=== PATIENT | male | born 1955 | race Caucasian/White ===

== ENCOUNTER 2018-12-13 09:30 | Day surgery (SDC) | payer OTHER ==
[~2018-12-13] VITALS: Ht 177.8 cm; Wt 72.1 kg
[~2018-12-13 09:30] MED LIST: ASPI81TA85 PO; B COTAB3 PO; METO25TA4 PO; PARO30TA PO; THIA100TA PO
[2018-12-13] MEDS ORDERED: PROPOFOL 200 MG/20 ML VIAL As Ordered ONE ×2 (11:16→11:34)
--- NOTE | 2018-12-13 11:37 | ROOR ---
Patient Name: Luis Sanches Procedure Date: 12/13/2018 11:17 AM Date of : 1955 Age: 63 Room: [facility] Gender: Male Note Status: Finalized Procedure: Total Colonoscopy to Cecum + Cold Snare Polypectomy Indications: Screening for colorectal malignant neoplasm Providers: Jean Malik MD Referring MD: Amor Arce Md Requesting Provider: Medicines: Monitored Anesthesia Care Complications: No immediate complications. Procedure: Pre-Anesthesia Assessment: - The heart rate, respiratory rate, oxygen saturations, blood pressure, adequacy of pulmonary ventilation, and response to care were monitored throughout the procedure. The Colonoscope was introduced through the anus and advanced to the cecum, identified by appendiceal orifice and ileocecal valve. The colonoscopy was performed without difficulty. The patient tolerated the procedure well. The quality of the bowel preparation was excellent. Findings: The perianal and digital rectal examinations were normal. Non-bleeding internal hemorrhoids were found during retroflexion. The hemorrhoids were small and Grade I (internal hemorrhoids that do not prolapse). Multiple small and large-mouthed diverticula were found in the recto-sigmoid colon, sigmoid colon and descending colon. A small polyp was found in the transverse colon. The polyp was sessile. The polyp was removed with a cold snare. Resection and retrieval were complete. The exam was otherwise without abnormality on direct and retroflexion views. Impression: - Non-bleeding internal hemorrhoids. - Diverticulosis in the recto-sigmoid colon, in the sigmoid colon and in the descending colon. - One small polyp in the transverse colon, removed with a cold snare. Resected and retrieved. - The examination was otherwise normal on direct and retroflexion views. - The exam was otherwise normal to the cecum. Recommendation: - Patient has a contact number available for emergencies. The signs and symptoms of potential delayed complications were discussed with the patient. Return to normal activities tomorrow. Written discharge instructions were provided to the patient. - High fiber diet. - Discharge patient to home. - Continue present medications. - Await pathology results. - Telephone GI clinic for pathology results in 1 week. - Return to referring physician. - The findings and recommendations were discussed with the patient's family. Jean Malik MD Jean Malik MD 12/13/2018 11:37:10 AM Electronically signed by Jean Malik MD Number of Addenda: 0 Note Initiated On: 12/13/2018 11:17 AM Estimated Blood Loss: Estimated blood loss: none.
[2018-12-13 12:10] VITALS: BP 160/96
== END 2018-12-13 12:20 | disposition home or self-care (01) ==
LOC: M OPP 09:30
PROVIDERS: ATTEND Internal Medicine Gastroenterology
DX: Z12.11 Encounter for screening for malignant neoplasm of colon (principal); K64.0 First degree hemorrhoids; D12.3 Benign neoplasm of transverse colon; K57.30 Diverticulosis of large intestine without perforation or abscess without bleeding; E83.119 Hemochromatosis, unspecified; I10 Essential (primary) hypertension; G35 Multiple sclerosis; Z79.82 Long term (current) use of aspirin; Z79.899 Other long term (current) drug therapy

== ENCOUNTER → 2020-05-17 | Outpatient (CLI) | payer OTHER ==
[~2020-05-17] MED LIST changes: -ASPI81TA85 PO; +ASPI81TA86 PO; -PARO30TA PO; +PARO30TA65 PO
--- NOTE | 2020-05-17 09:15 | REP ---
INDICATION: CIRRHOSIS, ASCITES COMPARISON: None TECHNIQUE: Real time B-mode day scale ultrasound examination using curved array transducer. FINDINGS: Liver demonstrates coarsened echotexture consistent with cirrhosis. No obvious focal hepatic lesion identified. Very small amount of perihepatic ascites noted. Spleen is normal in appearance and measures 9.5 x 9.8 x 4.4 cm (splenic index: 410). Few scattered splenic calcifications consistent with prior granulomatous disease. Pancreas is incompletely evaluated but visualized portions appear normal. Gallbladder is normal and without gallstones, wall thickening, or pericholecystic fluid. No biliary ductal dilatation is appreciated and the common bile duct measures 5.5 mm diameter. The bilateral kidneys are normal in reniform shape without hydronephrosis or obvious abnormality. Right kidney measures 9.7 x 4.5 x 4.5 cm. Left kidney measures 10.2 x 5.0 x 4.4 cm. Aorta is incompletely evaluated but visualized portions appear relatively normal and measure 1.4 cm maximal diameter. IMPRESSION: 1. Findings consistent with cirrhosis. No focal hepatic lesion identified. <Electronically signed by Benson Barbour > 05/17/20 [id number]
== END ==
LOC: M RAD 08:16
PROVIDERS: ATTEND Physician Assistant
DX: K74.60 Unspecified cirrhosis of liver (principal)

== ENCOUNTER → 2020-11-12 | Outpatient (CLI) | payer OTHER ==
[~2020-11-12] MED LIST changes: +GASTROGRAFIN SOLUTION 30ML (Q9963) As Ordered ONE; +ISOVUE-370 76% 100ML VIAL As Ordered ONE
--- NOTE | 2020-11-12 17:25 | REP ---
INDICATION: ALCOHOLIC CIRRHOSIS W/ ASCITES. COMPARISON: None. TECHNIQUE: Bolus of 100 mL Isovue 370 scanning to the abdomen with arterial, venous and delayed phases and with precontrast abdominal images also performed. Coronal and sagittal reconstructions provided. Oral Gastrografin mixture per our CT abdomen protocol given. FINDINGS: The lung bases appeared clear. Heart is not grossly enlarged. There is no pericardial thickening or effusion. No gross hiatal hernia but abundant fat at the level of the aortic hiatus and gastroesophageal junction. There is some infiltration of the periesophageal fat and irregular margins that may reflect varices or other pathology. The liver shows lobulated contour. No hepatic mass or intrahepatic biliary dilatation there is a very large left hepatic lobe present. Small of ascites adjacent to the liver. I see no splenomegaly or focal splenic lesion. Gallbladder has a few dependent stones without mass or wall thickening. There is thickening of the gastric antrum and duodenal bulb wall suggesting muscular hypertrophy or underlying mucosal disease such as gastritis/duodenitis. Lumen appears irregular. The adrenal glands grossly intact. Pancreas shows common duct mildly prominent in the cole hepatis and pancreatic head without calcification within it. Pancreatic duct is also mildly prominent without gross mass, fluid collection or peripancreatic adenopathy. The aorta has calcifications and plaque without aneurysm or dissection. No periaortic, mesenteric or other retroperitoneal pathologic sized adenopathy. Oral contrast into proximal to distal small bowel loops and right colon. No bowel wall thickening or significant mesenteric edema/fluid. The colon scattered stool and gas without colitis or diverticulitis observed. Lung window review of all CT slices shows no perforation or free air. Bone windows show a mild anterior wedging T12 and minimal at T10 and L4 superior endplates. No paraspinal hematoma is here to suggest acuity. Posterior elements show some degenerative changes lower lumbar facets. Visualized ribs were grossly unremarkable. IMPRESSION: 1. Prominent left hepatic lobe with lobulated hepatic contours, smaller right lobe, adjacent small amount of ascites all consistent with chronic liver disease. No focal liver lesion identified. No biliary dilatation. 2. No splenomegaly or focal splenic lesion. I do not see perisplenic varices but there is some fullness of the esophageal wall a distally and infiltration of adjacent fat that could be represent varices or other esophageal disease. This should be correlated clinically as esophageal malignancy is not excluded. 3. Irregular thickening of the wall of the distal antrum and duodenal bulb region the lumen is irregular. This may be mucosal disease with the affective some varices. Clinical correlation consideration for endoscopy warranted. 4. Few small layered gallstones in the dependent gallbladder with the common duct mildly prominent at the cole hepatis and pancreatic head but no stone visible within it. Pancreas shows mild prominence of the pancreatic duct without mass. 5. Diffuse atherosclerotic calcifications of the aorta and branches. Colon, small bowel loops and kidneys without acute finding. Adrenal glands symmetric with thickened limbs suggesting adrenal hyperplasia. 6. No acute bony finding. <Electronically signed by Rufino Silva > 11/12/20 [id number]
== END ==
LOC: M RAD 13:17
PROVIDERS: ATTEND Internal Medicine
DX: K70.31 Alcoholic cirrhosis of liver with ascites (principal)
CPT/HCPCS: 74170; Q9963; Q9967

== ENCOUNTER → 2021-05-14 | Outpatient (CLI) | payer OTHER ==
[~2021-05-14] MED LIST changes: -GASTROGRAFIN SOLUTION 30ML (Q9963) As Ordered ONE; -ISOVUE-370 76% 100ML VIAL As Ordered ONE
== END ==
LOC: M RAD 07:49
PROVIDERS: ATTEND Physician Assistant
DX: K70.31 Alcoholic cirrhosis of liver with ascites (principal)

== ENCOUNTER → 2021-12-27 | Outpatient (CLI) | payer OTHER | LOC: M RAD 07:48 | PROVIDERS: ATTEND Physician Assistant | DX: K70.31 Alcoholic cirrhosis of liver with ascites (principal) ==

== ENCOUNTER → 2022-07-02 | Outpatient (CLI) | payer MEDICARE, OTHER | LOC: M RAD 08:29 | PROVIDERS: ATTEND Physician Assistant | DX: K70.31 Alcoholic cirrhosis of liver with ascites (principal) ==

== ENCOUNTER → 2022-12-15 | Outpatient (CLI) | payer MEDICARE, OTHER | LOC: M RAD 08:06 | PROVIDERS: ATTEND Physician Assistant | DX: K70.31 Alcoholic cirrhosis of liver with ascites (principal) ==

== ENCOUNTER → 2023-06-05 | Outpatient (CLI) | payer MEDICARE, OTHER | LOC: M RAD 11:32 | PROVIDERS: ATTEND Podiatrist | DX: I73.9 Peripheral vascular disease, unspecified (principal) ==

== ENCOUNTER → 2023-06-22 | Outpatient (CLI) | payer MEDICARE, OTHER | LOC: M RAD 08:56 | PROVIDERS: ATTEND Physician Assistant | DX: K70.31 Alcoholic cirrhosis of liver with ascites (principal) ==

== ENCOUNTER 2023-07-21 15:13 | Observation (INO) | payer OTHER, MEDICARE ==
[~2023-07-21] VITALS: Ht 177.8 cm; Wt 69.6 kg
[2023-07-21 15:59] LABS: BASO % 0.4 % (0.0-1.0); EOS # 0.2 10^3/uL (0.0-0.5); EOS % 2.1 % (0.0-3.0); HEMATOCRIT 42.6 % (42.0-52.0); LYMPH # 1.7 10^3/uL (1.5-5.0); LYMPH % 23.7 % (24.0-44.0); MEAN CORPUSCULAR HEMOGLOBIN 33.5 pg (27.0-33.0); MEAN CORPUSCULAR HGB CONC 35.2 g/dl (32.0-36.5); MEAN CORPUSCULAR VOLUME 95.1 fl (80.0-96.0); MONO # 0.4 10^3/uL (0.0-0.8); MONO % 6.2 % (2.0-8.0); NEUTROPHILS # 4.7 10^3/uL (1.5-8.5); RED BLOOD COUNT 4.48 10^6/uL (4.30-6.10); WHITE BLOOD COUNT 7.1 10^3/uL (4.0-10.0)
[2023-07-21 16:06] LABS: ERYTHROCYTE SEDIMENTATION RATE 76 mm/hr (0-20)
[2023-07-21 16:18] LABS: PLATELET COUNT, AUTOMATED 86 10^3/uL (150-450)
[2023-07-21 16:22] LABS: BLOOD UREA NITROGEN 18 MG/DL (9-23); CARBON DIOXIDE LEVEL 25 MMOL/L (20-31); CHLORIDE LEVEL 100 MMOL/L (98-107); CREATININE FOR GFR 1.22 MG/DL (0.70-1.30); GLOMERULAR FILTRATION RATE > 60.0 (>49); GLUCOSE, FASTING 110 MG/DL (74-106); POTASSIUM SERUM 4.6 MMOL/L (3.5-5.1); SODIUM LEVEL 132 MMOL/L (136-145)
[2023-07-21] MEDS: ceFAZolin SOD 2 GM in IV 1 EA IV ONE (17:51)
[2023-07-21] MEDS: KETOROLAC 30 MG/ML 1ML VIAL IV ONE (17:51)
[2023-07-21] MEDS: ACETAMINOPHEN TAB 650MG DOSE (2X325MG) PO ONE (20:11)
[2023-07-21] MEDS: NS 1,000 ML IV ONE (20:12)
[2023-07-21] MEDS ORDERED: SPIR100T3 PO (20:50)
[2023-07-21] MEDS ORDERED: OMEP40CA4 PO (20:50)
[2023-07-21] MEDS ORDERED: MAGN400T35 PO (20:50)
[2023-07-21] MEDS ORDERED: FURO40TA2 PO (20:50)
[2023-07-21] MEDS ORDERED: EZET10TA21 PO (20:50)
[2023-07-21] MEDS ORDERED: PARO40TA3 PO (20:50)
[2023-07-21] MEDS ORDERED: FOLI1TAB11 PO (20:50)
[2023-07-21] MEDS ORDERED: GABA-1171 PO ×3 (20:50→23:28)
[2023-07-21 20:53] LABS: RSV AMPLIFICATION NEGATIVE (NEGATIVE)
[2023-07-21] MEDS ORDERED: METO1TAB87 PO (23:28)
[2023-07-21] MEDS ORDERED: MAGN400T33 PO (23:28)
[2023-07-21] MEDS ORDERED: OMEP40CA5 PO (23:28)
[2023-07-21] MEDS ORDERED: PAXI40TA12 PO (23:28)
[2023-07-21] MEDS ORDERED: VITA50TA47 PO ×2 (23:28)
[2023-07-21] MEDS ORDERED: VITA100093 PO (23:29)
[2023-07-21] MEDS ORDERED: HOME MED LIST COMPLETE! XX SCH (23:30)
[2023-07-21] MEDS ORDERED: ACETAMINOPHEN TAB 650MG DOSE (2X325MG) PO PRN (23:35)
[2023-07-21] MEDS: METOPROLOL TART 12.5 MG PER 1/2 TAB PO SCH (23:35)
[2023-07-22] MEDS ORDERED: PILL CUTTER 1 EACH XX PRN (00:05)
[2023-07-22] MEDS: CLINDAMYCIN 150MG CAPSULE PO SCH (01:12)
[2023-07-22] MEDS: OMEPRAZOLE 20MG CAP PO SCH (01:12)
[2023-07-22] MEDS: THIAMINE 100 MG TAB PO SCH ×2 (01:12→09:17)
[2023-07-22] MEDS: GABAPENTIN 100 MG CAP PO SCH ×2 (01:13→09:17)
[2023-07-22] MEDS: MAGNESIUM OXIDE 400MG TAB (MAG-OX) PO SCH (01:14)
[2023-07-22 01:32] VITALS: BP 118/56; TEMP 97.6; O2SAT 97
[2023-07-22 06:00] VITALS: BP 101/52; TEMP 97.7; O2SAT 97
[2023-07-22 07:19] LABS: CALCIUM LEVEL 8.2 MG/DL (8.3-10.6); CREATININE FOR GFR 1.3 MG/DL (0.70-1.30); GLOMERULAR FILTRATION RATE 58.6 (>49); POTASSIUM SERUM 4.2 MMOL/L (3.5-5.1)
[2023-07-22] MEDS ORDERED: ISOVUE-370 76% 100ML VIAL As Ordered ONE (08:14)
[2023-07-22] MEDS: NS 1,000 ML IV SCH (09:14)
[2023-07-22] MEDS: SPIRONOLACTONE 50 MG TAB PO SCH (09:15)
[2023-07-22] MEDS: EZETIMIBE 10MG TABLET (ZETIA) PO SCH (09:15)
[2023-07-22] MEDS: PARoxetine 20MG TABLET PO SCH (09:16)
[2023-07-22] MEDS: FUROSEMIDE 40 MG TAB PO SCH (09:16)
[2023-07-22] MEDS: FOLIC ACID 1MG TAB PO SCH (09:17)
[2023-07-22] MEDS: PERCOCET 5MG/325MG TAB PO PRN (10:29)
[2023-07-22 10:49] LABS: BASO % 0.7 % (0.0-1.0); EOS # 0.2 10^3/uL (0.0-0.5); EOS % 5.6 % (0.0-3.0); HEMATOCRIT 35.6 % (42.0-52.0); HEMOGLOBIN 12.5 g/dl (13.5-17.5); LYMPH # 1.4 10^3/uL (1.5-5.0); LYMPH % 33.3 % (24.0-44.0); MEAN CORPUSCULAR HEMOGLOBIN 33.4 pg (27.0-33.0); MEAN CORPUSCULAR HGB CONC 35.1 g/dl (32.0-36.5); MEAN CORPUSCULAR VOLUME 95.2 fl (80.0-96.0); MONO # 0.3 10^3/uL (0.0-0.8); MONO % 7.1 % (2.0-8.0); NEUTROPHILS # 2.2 10^3/uL (1.5-8.5); NEUTROPHILS % 53.1 % (36.0-66.0); RED BLOOD COUNT 3.74 10^6/uL (4.30-6.10); WHITE BLOOD COUNT 4.1 10^3/uL (4.0-10.0)
[2023-07-22 10:52] LABS: PROCALCITONIN 0.1 ng/ml
[2023-07-22 10:59] LABS: PLATELET COUNT, AUTOMATED 65 10^3/uL (150-450)
[2023-07-22 14:00] VITALS: BP 108/60; TEMP 96.8; O2SAT 100
[2023-07-22] MEDS: HEPARIN SOD (PORCINE) 5000UNITS/ML 1ML VIAL/SYRINGE SQ SCH (14:59)
[2023-07-22] MEDS: CALCIUM CARBONATE 500 MG CHEW U/D PO PRN (15:27)
[2023-07-22 21:37] VITALS: BP 104/60; TEMP 97.7; O2SAT 97
[2023-07-22 21:53] VITALS: BP 104/60; TEMP 97.7; O2SAT 97
[2023-07-23 06:26] LABS: BASO % 0.5 % (0.0-1.0); EOS # 0.2 10^3/uL (0.0-0.5); EOS % 3.8 % (0.0-3.0); HEMATOCRIT 36.5 % (42.0-52.0); HEMOGLOBIN 12.5 g/dl (13.5-17.5); LYMPH # 1.7 10^3/uL (1.5-5.0); LYMPH % 25.9 % (24.0-44.0); MEAN CORPUSCULAR HEMOGLOBIN 32.6 pg (27.0-33.0); MEAN CORPUSCULAR HGB CONC 34.2 g/dl (32.0-36.5); MEAN CORPUSCULAR VOLUME 95.3 fl (80.0-96.0); MONO # 0.5 10^3/uL (0.0-0.8); MONO % 7.8 % (2.0-8.0); NEUTROPHILS # 3.9 10^3/uL (1.5-8.5); NEUTROPHILS % 61.4 % (36.0-66.0); RED BLOOD COUNT 3.83 10^6/uL (4.30-6.10); WHITE BLOOD COUNT 6.4 10^3/uL (4.0-10.0)
[2023-07-23 06:31] LABS: PLATELET COUNT, AUTOMATED 78 10^3/uL (150-450)
[2023-07-23 06:55] LABS: BLOOD UREA NITROGEN 13 MG/DL (9-23); CALCIUM LEVEL 8.5 MG/DL (8.3-10.6); CARBON DIOXIDE LEVEL 27 MMOL/L (20-31); CHLORIDE LEVEL 107 MMOL/L (98-107); CREATININE FOR GFR 1.22 MG/DL (0.70-1.30); GLOMERULAR FILTRATION RATE > 60.0 (>49); GLUCOSE, FASTING 95 MG/DL (74-106); POTASSIUM SERUM 4.8 MMOL/L (3.5-5.1); SODIUM LEVEL 138 MMOL/L (136-145)
[2023-07-23 09:00] VITALS: BP 102/58
[2023-07-23 09:02] LABS: CALCIUM LEVEL 9.1 MG/DL (8.3-10.6)
[2023-07-23 09:05] VITALS: BP 102/58
[2023-07-23] MEDS ORDERED: PROBCAP14 PO (11:50)
[2023-07-23] MEDS ORDERED: AMOX875T2 PO (11:50)
[2023-07-23 12:00] VITALS: BP 114/63; TEMP 98.1; O2SAT 96
[2023-07-23 12:15] LABS: ALBUMIN 2.5 G/DL (3.2-5.2); ALKALINE PHOSPHATASE 100 U/L (46-116); ALT/SGPT 16 U/L (7.0-40); AST/SGOT 42 U/L (<34); BILIRUBIN,DIRECT 0.5 MG/DL (<0.4); BILIRUBIN,TOTAL 0.8 MG/DL (0.3-1.2); TOTAL PROTEIN 5.8 G/DL (5.7-8.2)
== END 2023-07-23 14:32 | disposition home or self-care (01) ==
LOC: M ED 15:13 → M ED INP 15:14 → ENRESERV 23:18 → M MSPAV 07-22 01:28
PROVIDERS: ADMIT Internal Medicine; ATTEND Internal Medicine
DX: L03.032 Cellulitis of left toe (principal); S92.415A Nondisplaced fracture of proximal phalanx of left great toe, initial encounter for closed fracture; W18.09XA Striking against other object with subsequent fall, initial encounter; Y92.009 Unspecified place in unspecified non-institutional (private) residence as the place of occurrence of the external cause; Y93.01 Activity, walking, marching and hiking; Y99.8 Other external cause status; A49.01 Methicillin susceptible Staphylococcus aureus infection, unspecified site; L97.528 Non-pressure chronic ulcer of other part of left foot with other specified severity; E87.20 Acidosis, unspecified; D61.818 Other pancytopenia; K70.30 Alcoholic cirrhosis of liver without ascites; F10.21 Alcohol dependence, in remission; K21.9 Gastro-esophageal reflux disease without esophagitis; I73.9 Peripheral vascular disease, unspecified; I10 Essential (primary) hypertension; E78.5 Hyperlipidemia, unspecified; E55.9 Vitamin D deficiency, unspecified; F39 Unspecified mood [affective] disorder; F43.10 Post-traumatic stress disorder, unspecified; G62.9 Polyneuropathy, unspecified; Z88.5 Allergy status to narcotic agent; Z79.899 Other long term (current) drug therapy; Z80.1 Family history of malignant neoplasm of trachea, bronchus and lung; Z82.0 Family history of epilepsy and other diseases of the nervous system; Z82.49 Family history of ischemic heart disease and other diseases of the circulatory system
CPT/HCPCS: 11012; 36415; 73590; 73610; 73630; 73701; 80047; 80048; 80076; 83605; 84145; 85025; 85049; 85055; 85652; 86140; 87040; 87070; 87077; 87186; 87205; 87631; 87641; 96365; 96366; 96372; 96375; 97116; 97161; 97165; 97530; 99284; G0378; J0690; J1885; Q9967

== ENCOUNTER 2023-12-09 09:13 | Day surgery (SDC) | payer OTHER ==
[~2023-12-09] VITALS: Ht 177.8 cm; Wt 60.6 kg
[~2023-12-09 09:13] MED LIST changes: +AMOX875T2 PO; +EZET10TA21 PO; +FOLI1TAB11 PO; +FURO40TA2 PO; +GABA-1171 PO; +LIDOCAINE 2% 100MG/5ML SDV (FOR ANES.) As Ordered ONE; +MAGN400T33 PO; +MAGN400T35 PO; +METO1TAB87 PO; +OMEP40CA4 PO; +OMEP40CA5 PO; +PARO40TA3 PO; +PAXI40TA12 PO; +PROBCAP14 PO; +SPIR100T3 PO; +VITA100093 PO; +VITA50TA47 PO; +fentaNYL 100 MCG/2 ML INJECTION As Ordered ONE; +propofoL 500 MG/50 ML VIAL As Ordered ONE
[2023-12-09] MEDS: NS 1,000 ML IV ONE (09:46)
[2023-12-09 10:52] VITALS: TEMP 97
[2023-12-09 11:15] VITALS: BP 123/66; O2SAT 95
== END 2023-12-09 11:21 | disposition home or self-care (01) ==
LOC: M SDC 09:13
PROVIDERS: ATTEND Internal Medicine Gastroenterology
DX: Z12.11 Encounter for screening for malignant neoplasm of colon (principal); K64.0 First degree hemorrhoids; K74.60 Unspecified cirrhosis of liver; I85.10 Secondary esophageal varices without bleeding; K25.9 Gastric ulcer, unspecified as acute or chronic, without hemorrhage or perforation; K21.9 Gastro-esophageal reflux disease without esophagitis; Z86.010 Personal history of colon polyps; I10 Essential (primary) hypertension; E78.00 Pure hypercholesterolemia, unspecified; Z79.899 Other long term (current) drug therapy; E83.119 Hemochromatosis, unspecified; Z88.8 Allergy status to other drugs, medicaments and biological substances; F43.10 Post-traumatic stress disorder, unspecified; G62.9 Polyneuropathy, unspecified

== ENCOUNTER 2024-01-14 07:12 | Day surgery (SDC) | payer OTHER, MEDICARE ==
[~2024-01-14] VITALS: Ht 177.8 cm; Wt 62.1 kg
[~2024-01-14 07:12] MED LIST changes: -LIDOCAINE 2% 100MG/5ML SDV (FOR ANES.) As Ordered ONE; +METH50IN8 IM; +SPIR50TA4 PO; -fentaNYL 100 MCG/2 ML INJECTION As Ordered ONE; -propofoL 500 MG/50 ML VIAL As Ordered ONE
[2024-01-14] MEDS: LR 1,000 ML IV SCH (07:54)
[2024-01-14] MEDS ORDERED: MIDAZOLAM INJ 2MG/2ML VIAL As Ordered ONE (08:03)
[2024-01-14] MEDS ORDERED: fentaNYL 100 MCG/2 ML INJECTION As Ordered ONE (08:22)
[2024-01-14] MEDS ORDERED: propofoL 200 MG/20 ML VIAL As Ordered ONE (08:23)
[2024-01-14] MEDS ORDERED: LIDOCAINE 2% 100MG/5ML SDV (FOR ANES.) As Ordered ONE (08:24)
[2024-01-14] MEDS: ceFAZolin SOD 2 GM in IV 1 EA IV ONE (08:33)
[2024-01-14] MEDS: LIDOCAINE 1% SDV 30ML VIAL As Ordered ONE (08:40)
[2024-01-14] MEDS ORDERED: PHENYLephrine 500MCG 5ML (100MCG/ML) SYRINGE As Ordered ONE (08:53)
[2024-01-14] MEDS ORDERED: ACET-716 PO (10:09)
[2024-01-14 10:35] VITALS: BP 147/61; TEMP 96.8; O2SAT 100
== END 2024-01-14 10:45 | disposition home or self-care (01) ==
LOC: M SDC 07:12
PROVIDERS: ATTEND Podiatrist Foot & Ankle Surgery
DX: M20.5X2 Other deformities of toe(s) (acquired), left foot (principal); Z88.5 Allergy status to narcotic agent; Z79.899 Other long term (current) drug therapy
CPT/HCPCS: 28285; J0665; J0690; J2250; J2371; J3010

== ENCOUNTER → 2024-04-26 | Outpatient (CLI) | payer OTHER, MEDICARE ==
[~2024-04-26] MED LIST changes: +ACET-716 PO
[2024-04-26 13:44] LABS: HEMATOCRIT 37.8 % (42.0-52.0); HEMOGLOBIN 12.8 g/dl (13.5-17.5); MEAN CORPUSCULAR HEMOGLOBIN 32.7 pg (27.0-33.0); MEAN CORPUSCULAR HGB CONC 33.9 g/dl (32.0-36.5); MEAN CORPUSCULAR VOLUME 96.7 fl (80.0-96.0); PLATELET COUNT, AUTOMATED 85 10^3/uL (150-450); RED BLOOD COUNT 3.91 10^6/uL (4.30-6.10); WHITE BLOOD COUNT 5.2 10^3/uL (4.0-10.0)
[2024-04-26 13:57] LABS: INR 1.08; PROTHROMBIN TIME 14.3 SECONDS (12.5-14.5)
[2024-04-26 14:04] LABS: BLOOD UREA NITROGEN 7 MG/DL (9-23); CARBON DIOXIDE LEVEL 26 MMOL/L (20-31); CHLORIDE LEVEL 104 MMOL/L (98-107); GLOMERULAR FILTRATION RATE > 60.0 (>49); GLUCOSE, FASTING 104 MG/DL (74-106); POTASSIUM SERUM 4.2 MMOL/L (3.5-5.1); SODIUM LEVEL 137 MMOL/L (136-145)
== END ==
LOC: M LAB 13:11
PROVIDERS: ATTEND Radiology Diagnostic Radiology
DX: I73.9 Peripheral vascular disease, unspecified (principal); D50.9 Iron deficiency anemia, unspecified

== ENCOUNTER → 2024-04-26 | Outpatient (CLI) | payer OTHER, MEDICARE | LOC: M RAD 12:02 | PROVIDERS: ATTEND Podiatrist Foot & Ankle Surgery | DX: I73.89 Other specified peripheral vascular diseases (principal) ==

== ENCOUNTER → 2024-04-29 | Outpatient (CLI) | payer OTHER, MEDICARE ==
[~2024-04-29] VITALS: Ht 179.1 cm; Wt 62.2 kg
[~2024-04-29] MED LIST changes: +ACETAMINOPHEN 325 MG TAB PO PRN; +ASPI81CH33 PO; +HEPARIN 1,000UNITS/ML 10ML VIAL (FOR RADIOLOGY & DIALYSIS ONLY) As Ordered ONE; +ISOVUE-300 61% 100ML VIAL As Ordered ONE; +LIDOCAINE 1% MDV 20ML VIAL As Ordered ONE; +MIDAZOLAM INJ 2MG/2ML VIAL As Ordered ONE; +NITROGLYCERIN IN D5W 25MG/250ML (100MCG/ML) As Ordered ONE; +NS (Normal Saline) 0.9% 1,000 ML IV SCH; +ONDANSETRON 4MG 2ML VIAL IV PRN; +PERCOCET 5MG/325MG TAB PO PRN; +XARE2.5T PO; +fentaNYL 100 MCG/2 ML INJECTION As Ordered ONE
[2024-04-29 10:40] VITALS: TEMP 97.8
[2024-04-29 16:00] VITALS: BP 128/78; O2SAT 97
== END ==
LOC: M IRPRO 10:29
PROVIDERS: ATTEND Podiatrist Foot & Ankle Surgery
DX: I77.1 Stricture of artery (principal); I73.9 Peripheral vascular disease, unspecified
CPT/HCPCS: 37228; 99152; 99153; C1760; C1769; C1887; C1894; J2250; J2305; J3010; Q9967

== ENCOUNTER 2024-05-25 11:29 | Day surgery (SDC) | payer OTHER, MEDICARE ==
[~2024-05-25] VITALS: Ht 177.8 cm; Wt 59.9 kg
[~2024-05-25 11:29] MED LIST changes: +ACET-653 PO; -ACETAMINOPHEN 325 MG TAB PO PRN; +ECOT81TA5 PO; -HEPARIN 1,000UNITS/ML 10ML VIAL (FOR RADIOLOGY & DIALYSIS ONLY) As Ordered ONE; -ISOVUE-300 61% 100ML VIAL As Ordered ONE; -LIDOCAINE 1% MDV 20ML VIAL As Ordered ONE; +METH25IN12 SQ; -MIDAZOLAM INJ 2MG/2ML VIAL As Ordered ONE; -NITROGLYCERIN IN D5W 25MG/250ML (100MCG/ML) As Ordered ONE; -NS (Normal Saline) 0.9% 1,000 ML IV SCH; -ONDANSETRON 4MG 2ML VIAL IV PRN; -PERCOCET 5MG/325MG TAB PO PRN; -fentaNYL 100 MCG/2 ML INJECTION As Ordered ONE
[2024-05-25] MEDS ORDERED: propofoL 200 MG/20 ML VIAL As Ordered ONE (11:40)
[2024-05-25] MEDS ORDERED: ONDANSETRON 4MG 2ML VIAL As Ordered ONE (11:40)
[2024-05-25] MEDS ORDERED: LIDOCAINE 2% 100MG/5ML SDV (FOR ANES.) As Ordered ONE (11:40)
[2024-05-25] MEDS ORDERED: MIDAZOLAM INJ 2MG/2ML VIAL As Ordered ONE (11:43)
[2024-05-25] MEDS ORDERED: fentaNYL 100 MCG/2 ML INJECTION As Ordered ONE (11:43)
[2024-05-25] MEDS: ceFAZolin SOD 2 GM in IV 1 EA IV ONE (12:00)
[2024-05-25] MEDS: LIDOCAINE 1% MDV 20ML VIAL As Ordered ONE (13:18)
[2024-05-25] MEDS: ceFAZolin 2 GM/D5W 50 ML IV BAG As Ordered ONE (13:19)
[2024-05-25 14:29] VITALS: BP 139/70; TEMP 97.5; O2SAT 98
== END 2024-05-25 14:47 | disposition home or self-care (01) ==
LOC: M SDC 11:29
PROVIDERS: ATTEND Podiatrist Foot & Ankle Surgery
DX: M20.62 Acquired deformities of toe(s), unspecified, left foot (principal); F43.10 Post-traumatic stress disorder, unspecified; Z79.899 Other long term (current) drug therapy
CPT/HCPCS: 28820; 88305; J0665; J0690; J1100; J2250; J2405; J3010

== ENCOUNTER → 2024-06-23 | Outpatient (CLI) | payer OTHER, MEDICARE | LOC: M RAD 09:31 | PROVIDERS: ATTEND Internal Medicine Medical Oncology | DX: R16.1 Splenomegaly, not elsewhere classified (principal) ==

== ENCOUNTER → 2024-08-03 | Outpatient (POV) | payer MEDICARE ==
[2024-08-01 14:40] VITALS: BP 126/62; O2SAT 98
== END ==
LOC: M IRPOV 14:36
PROVIDERS: ATTEND Radiology Diagnostic Radiology
DX: Z48.812 Encounter for surgical aftercare following surgery on the circulatory system (principal); I70.202 Unspecified atherosclerosis of native arteries of extremities, left leg; Z88.8 Allergy status to other drugs, medicaments and biological substances

== ENCOUNTER → 2024-08-16 | Outpatient (CLI) | payer MEDICARE | LOC: M PLALAB 13:37 | PROVIDERS: ATTEND Nurse Practitioner Family | DX: Z01.89 Encounter for other specified special examinations (principal) ==

== ENCOUNTER → 2024-09-06 | Outpatient (REF) | payer MEDICARE, OTHER | LOC: M SMT 13:14 | PROVIDERS: ATTEND Urology | DX: R97.20 Elevated prostate specific antigen [PSA] (principal) ==

== ENCOUNTER → 2024-10-27 | Outpatient (CLI) | payer MEDICARE, OTHER | LOC: M ONCR 13:20 | PROVIDERS: ATTEND General Practice | DX: C61 Malignant neoplasm of prostate (principal); R97.20 Elevated prostate specific antigen [PSA]; S22.080A Wedge compression fracture of T11-T12 vertebra, initial encounter for closed fracture; Z79.818 Long term (current) use of other agents affecting estrogen receptors and estrogen levels; Z85.828 Personal history of other malignant neoplasm of skin; Z80.3 Family history of malignant neoplasm of breast; Z88.5 Allergy status to narcotic agent; Z79.82 Long term (current) use of aspirin; Z79.899 Other long term (current) drug therapy ==

== ENCOUNTER → 2024-11-18 | Outpatient (CLI) | payer MEDICARE, OTHER ==
[~2024-11-18] MED LIST changes: +CIPR750T2 PO; +LIDOCAINE VISCOUS 2% SOLN 15 ML UDC XX SCH; +LORA1TAB23 PO
[2024-11-18] MEDS: LIDOCAINE VISCOUS 2% SOLN 15 ML UDC XX ONE (15:55)
[2024-11-18] MEDS: LIDOCAINE 2% MDV 20 ML VIAL XX ONE (15:55)
== END ==
LOC: M ONCR 14:37
PROVIDERS: ATTEND General Practice
DX: C61 Malignant neoplasm of prostate (principal)
CPT/HCPCS: 55874; 55876; A4648; C1889

== ENCOUNTER 2024-11-30 10:55 | Outpatient (RCR) | payer OTHER, MEDICARE ==
[~2024-11-30 10:55] MED LIST changes: -LIDOCAINE VISCOUS 2% SOLN 15 ML UDC XX SCH
== END 2024-12-25 ==
LOC: M ONCR 10:55
PROVIDERS: ATTEND General Practice
DX: Z51.0 Encounter for antineoplastic radiation therapy (principal); C61 Malignant neoplasm of prostate

== ENCOUNTER 2024-12-29 22:09 | Emergency (ER) | payer OTHER, MEDICARE ==
[~2024-12-29] VITALS: Ht 179.1 cm; Wt 53.8 kg
[2024-12-29 23:48] VITALS: TEMP 97.5
[2024-12-30] MEDS: ONDANSETRON 4MG 2ML VIAL IV ONE (00:09)
[2024-12-30] MEDS: MORPHINE 4 MG/ML 1 ML VIAL IV PRN (00:10)
[2024-12-30 00:23] LABS: BASO # 0.0 10^3/uL (0.0-0.2); BASO % 0.8 % (0.0-1.0); EOS # 0.1 10^3/uL (0.0-0.5); EOS % 2.7 % (0.0-3.0); LYMPH # 0.8 10^3/uL (1.5-5.0); LYMPH % 15.1 % (24.0-44.0); MONO # 0.3 10^3/uL (0.0-0.8); MONO % 5.8 % (2.0-8.0); NEUTROPHILS # 3.9 10^3/uL (1.5-8.5); NEUTROPHILS % 74.8 % (36.0-66.0); PLATELET COUNT, AUTOMATED 130 10^3/uL (150-450)
[2024-12-30 00:27] LABS: INR 1.18
[2024-12-30 00:57] LABS: ALT/SGPT 18 U/L (7.0-40); AST/SGOT 63 U/L (<34); CALCIUM LEVEL 8.2 MG/DL (8.3-10.6); CARBON DIOXIDE LEVEL 24 MMOL/L (20-31); CHLORIDE LEVEL 104 MMOL/L (98-107); CK-MB VALUE MASS 1.0 NG/ML (<3.6); CPK CREATINE PHOSPHOKINASE 88 U/L (46-171); CREATININE FOR GFR 0.86 MG/DL (0.70-1.30); GLOMERULAR FILTRATION RATE > 90.0 (>49); MB/CK RELATIVE INDEX 1.13 (< OR =4); POTASSIUM SERUM 5.4 MMOL/L (3.5-5.1); SODIUM LEVEL 137 MMOL/L (136-145)
[2024-12-30 01:41] VITALS: BP 153/69; O2SAT 96
[2024-12-30] MEDS: OXYCODONE/APAP 5MG/325MG(HOME DOSE PACK) PO ONE (01:42)
== END 2024-12-30 01:50 | disposition home or self-care (01) ==
LOC: M ED 22:09
DX: S42.212A Unspecified displaced fracture of surgical neck of left humerus, initial encounter for closed fracture (principal); S01.419A Laceration without foreign body of unspecified cheek and temporomandibular area, initial encounter; Y92.019 Unspecified place in single-family (private) house as the place of occurrence of the external cause; Y93.9 Activity, unspecified; Y99.9 Unspecified external cause status; W19.XXXA Unspecified fall, initial encounter; C61 Malignant neoplasm of prostate; F43.10 Post-traumatic stress disorder, unspecified; Z88.8 Allergy status to other drugs, medicaments and biological substances; Z79.899 Other long term (current) drug therapy
CPT/HCPCS: 70450; 72125; 73030; 80048; 80076; 82550; 82553; 84484; 85025; 85610; 85730; 93005; 96374; 96375; 99284; J2405

== ENCOUNTER 2025-02-03 14:10 | Inpatient (IN) | payer OTHER, MEDICARE ==
[~2025-02-03] VITALS: Ht 177.8 cm; Wt 57.5 kg
[~2025-02-03 14:10] MED LIST changes: -EZET10TA21 PO; +EZET10TA57 PO
[2025-02-03] MEDS: MORPHINE 4 MG/ML 1 ML VIAL IV ONE (15:33)
[2025-02-03 15:44] LABS: BASO # 0.0 10^3/uL (0.0-0.2); BASO % 0.7 % (0.0-1.0); EOS # 0.1 10^3/uL (0.0-0.5); EOS % 1.1 % (0.0-3.0); LYMPH # 1.1 10^3/uL (1.5-5.0); LYMPH % 19.1 % (24.0-44.0); MONO # 0.3 10^3/uL (0.0-0.8); MONO % 5.4 % (2.0-8.0); NEUTROPHILS # 4.0 10^3/uL (1.5-8.5); NEUTROPHILS % 73.3 % (36.0-66.0); PLATELET COUNT, AUTOMATED 192 10^3/uL (150-450)
[2025-02-03 15:56] LABS: INR 1.11
[2025-02-03 16:04] LABS: ALT/SGPT 19.0 U/L (7.0-40); AST/SGOT 53.0 U/L (<34)
[2025-02-03] MEDS ORDERED: ISOVUE-370 76% 100 ML VIAL As Ordered ONE (16:27)
[2025-02-03] MEDS: NS (Normal Saline) 0.9% 1,000 ML IV SCH (18:20)
[2025-02-03] MEDS ORDERED: HOME MED LIST COMPLETE! XX SCH (18:40)
[2025-02-03 19:32] LABS: PLATELET COUNT, AUTOMATED 174 10^3/uL (150-450)
[2025-02-03] MEDS ORDERED: MORPHINE 4 MG/ML 1 ML VIAL IV PRN (19:35)
[2025-02-03 21:15] VITALS: BP 185/77; TEMP 97.5; O2SAT 98
[2025-02-03] MEDS: METOPROLOL TART 12.5 MG PER 1/2 TAB PO ONE (23:30)
[2025-02-03] MEDS: MAGNESIUM OXIDE 400 MG TAB PO ONE (23:31)
[2025-02-03] MEDS: GABAPENTIN 100 MG CAP PO ONE (23:31)
[2025-02-04] MEDS: PANTOPRAZOLE 40MG VIAL IV SCH
[2025-02-04] MEDS: MORPHINE 4 MG/ML 1 ML VIAL IV PRN (01:18)
[2025-02-04] MEDS: LIDOCAINE 5% PATCH TD ONE (01:18)
[2025-02-04 02:00] VITALS: BP 168/75; TEMP 97.3; O2SAT 97
[2025-02-04 06:00] VITALS: BP 147/75; TEMP 97.2; O2SAT 96
[2025-02-04 08:00] VITALS: BP 106/52; TEMP 97.3; O2SAT 97
[2025-02-04 08:08] LABS: PLATELET COUNT, AUTOMATED 162 10^3/uL (150-450)
[2025-02-04 08:18] LABS: INR 1.24
[2025-02-04 08:42] LABS: ALT/SGPT 14 U/L (7.0-40); AST/SGOT 35 U/L (<34); CALCIUM LEVEL 8.1 MG/DL (8.3-10.6); CARBON DIOXIDE LEVEL 24 MMOL/L (20-31); CHLORIDE LEVEL 103 MMOL/L (98-107); CREATININE FOR GFR 0.81 MG/DL (0.70-1.30); GLOMERULAR FILTRATION RATE > 90.0 (>49); MAGNESIUM LEVEL 1.7 MG/DL (1.8-2.4); POTASSIUM SERUM 3.3 MMOL/L (3.5-5.1); SODIUM LEVEL 136 MMOL/L (136-145)
[2025-02-04] MEDS: GABAPENTIN 100 MG CAP PO SCH ×2 (10:52→21:01)
[2025-02-04] MEDS: POTASSIUM CHLORIDE 10MEQ SR TABLET PO ONE (10:52)
[2025-02-04] MEDS: PARoxetine 20MG TABLET PO SCH (10:53)
[2025-02-04] MEDS: MAG SULF 1GM/100ML (MAG RUN) 1 GM in IV 1 EA IV SCH (10:53)
[2025-02-04] MEDS: EZETIMIBE 10 MG TABLET PO SCH (10:53)
[2025-02-04] MEDS: METOPROLOL TART 12.5 MG PER 1/2 TAB PO SCH (10:54)
[2025-02-04] MEDS: VITAMIN D 1,000 INTERNATIONAL UNITS TABLET PO SCH (10:54)
[2025-02-04] MEDS: SPIRONOLACTONE 50 MG TAB PO SCH (10:54)
[2025-02-04] MEDS: FOLIC ACID 1 MG TAB PO SCH (10:55)
[2025-02-04] MEDS: FUROSEMIDE 20 MG TAB PO SCH (10:56)
[2025-02-04 12:00] VITALS: BP 110/62; TEMP 97.3; O2SAT 98
[2025-02-04 14:39] LABS: IRON (FE) 39 UG/DL (65-175)
[2025-02-04 14:42] LABS: VITAMIN B12 LEVEL 503 PG/ML (211-911)
[2025-02-04 14:53] LABS: PERCENT SATURATION 19.3 % (19.7-50.0)
[2025-02-04 16:00] VITALS: BP 108/68; TEMP 97.5; O2SAT 97
[2025-02-04] MEDS: PERCOCET 5MG/325MG TAB PO PRN (16:02)
[2025-02-04] MEDS: MAGNESIUM OXIDE 400 MG TAB PO SCH (21:01)
[2025-02-04 21:28] VITALS: BP 126/57; TEMP 97.2; O2SAT 96
[2025-02-05] VITALS (10 sets, daily range): BP systolic 101–125; BP diastolic 45–86; TEMP 97–97.7; O2SAT 96–99
[2025-02-05 08:06] LABS: BASO # 0.0 10^3/uL (0.0-0.2); BASO % 0.7 % (0.0-1.0); EOS # 0.3 10^3/uL (0.0-0.5); EOS % 5.9 % (0.0-3.0); LYMPH # 1.0 10^3/uL (1.5-5.0); LYMPH % 23.1 % (24.0-44.0); MONO # 0.3 10^3/uL (0.0-0.8); MONO % 7.3 % (2.0-8.0); NEUTROPHILS # 2.7 10^3/uL (1.5-8.5); NEUTROPHILS % 62.5 % (36.0-66.0); PLATELET COUNT, AUTOMATED 158 10^3/uL (150-450)
[2025-02-05 08:32] LABS: CALCIUM LEVEL 7.4 MG/DL (8.3-10.6); CARBON DIOXIDE LEVEL 24.0 MMOL/L (20-31); CHLORIDE LEVEL 105.0 MMOL/L (98-107); CREATININE FOR GFR 0.99 MG/DL (0.70-1.30); GLOMERULAR FILTRATION RATE 83.0 (>49); MAGNESIUM LEVEL 2.0 MG/DL (1.8-2.4); POTASSIUM SERUM 4.0 MMOL/L (3.5-5.1); SODIUM LEVEL 138.0 MMOL/L (136-145)
[2025-02-05] MEDS: FERRIC CARBOXYMALTOSE INJ 750 MG, VIAL MATE ADAPTER 1 EACH in NS 100 ML IV ONE (10:50)
[2025-02-06 04:38] VITALS: BP 99/44; TEMP 97.5; O2SAT 95
[2025-02-06 06:30] LABS: BASO # 0.0 10^3/uL (0.0-0.2); BASO % 0.4 % (0.0-1.0); EOS # 0.2 10^3/uL (0.0-0.5); EOS % 4.7 % (0.0-3.0); LYMPH # 1.4 10^3/uL (1.5-5.0); LYMPH % 31.6 % (24.0-44.0); MONO # 0.3 10^3/uL (0.0-0.8); MONO % 7.1 % (2.0-8.0); NEUTROPHILS # 2.5 10^3/uL (1.5-8.5); NEUTROPHILS % 55.8 % (36.0-66.0); PLATELET COUNT, AUTOMATED 153 10^3/uL (150-450)
[2025-02-06 06:55] LABS: CALCIUM LEVEL 7.8 MG/DL (8.3-10.6); CARBON DIOXIDE LEVEL 26 MMOL/L (20-31); CHLORIDE LEVEL 102 MMOL/L (98-107); CREATININE FOR GFR 0.92 MG/DL (0.70-1.30); GLOMERULAR FILTRATION RATE > 90.0 (>49); POTASSIUM SERUM 4.1 MMOL/L (3.5-5.1); SODIUM LEVEL 135 MMOL/L (136-145)
[2025-02-06] MEDS: PANTOPRAZOLE 40MG TAB PO SCH (09:20)
[2025-02-06 09:27] VITALS: BP 116/60; TEMP 97.5
[2025-02-06 14:00] VITALS: BP 109/59; TEMP 97.2; O2SAT 99
[2025-02-06 18:00] VITALS: BP 111/56; TEMP 97.5; O2SAT 98
[2025-02-06 20:00] VITALS: BP 131/50; TEMP 97.5; O2SAT 97
[2025-02-07 00:07] VITALS: TEMP 97.2
[2025-02-07 00:08] VITALS: BP 126/53; TEMP 97.2; O2SAT 97
[2025-02-07 07:43] VITALS: BP 108/42; TEMP 97; O2SAT 96
[2025-02-07 08:00] VITALS: BP_SYST 12; BP_SYST 129; BP_DIAS 59; TEMP 97.3; O2SAT 94
[2025-02-07 09:10] VITALS: BP 120/46
== END 2025-02-07 11:38 | disposition home health service (06) | DRG 378 ==
LOC: M ED 14:10 → M ED INP 18:18 → M MS5PR 21:10 → OBSVTOIN 02-05 11:19
PROVIDERS: ADMIT Student in an Organized Health Care Education/Training Program; ATTEND General Practice
PROC: 30233N1 Transfusion of Nonautologous Red Blood Cells into Peripheral Vein, Percutaneous Approach (ICD-10-PCS; principal; 2025-02-05)
DX: K62.5 Hemorrhage of anus and rectum (principal); R18.8 Other ascites; J90 Pleural effusion, not elsewhere classified; E87.1 Hypo-osmolality and hyponatremia; K74.60 Unspecified cirrhosis of liver; C61 Malignant neoplasm of prostate; G62.9 Polyneuropathy, unspecified; K21.9 Gastro-esophageal reflux disease without esophagitis; I10 Essential (primary) hypertension; F41.9 Anxiety disorder, unspecified; F32.A Depression, unspecified; R63.4 Abnormal weight loss; K44.9 Diaphragmatic hernia without obstruction or gangrene; E88.09 Other disorders of plasma-protein metabolism, not elsewhere classified; S42.202D Unspecified fracture of upper end of left humerus, subsequent encounter for fracture with routine healing; G89.11 Acute pain due to trauma; M25.552 Pain in left hip; E87.6 Hypokalemia; E83.42 Hypomagnesemia; I73.9 Peripheral vascular disease, unspecified; D69.6 Thrombocytopenia, unspecified; D50.0 Iron deficiency anemia secondary to blood loss (chronic); R74.01 Elevation of levels of liver transaminase levels; R63.0 Anorexia; D46.9 Myelodysplastic syndrome, unspecified; Z79.899 Other long term (current) drug therapy; Z88.8 Allergy status to other drugs, medicaments and biological substances; Z98.62 Peripheral vascular angioplasty status

== ENCOUNTER → 2025-03-07 | Outpatient (CLI) | payer MEDICARE, OTHER ==
[2025-03-07 12:50] VITALS: TEMP 98.6
[2025-03-07 13:11] LABS: BASO # 0.1 10^3/uL (0.0-0.2); BASO % 1.1 % (0.0-1.0); EOS # 0.3 10^3/uL (0.0-0.5); EOS % 5.8 % (0.0-3.0); LYMPH # 1.2 10^3/uL (1.5-5.0); LYMPH % 21.8 % (24.0-44.0); MONO # 0.4 10^3/uL (0.0-0.8); MONO % 6.5 % (2.0-8.0); NEUTROPHILS # 3.6 10^3/uL (1.5-8.5); NEUTROPHILS % 64.6 % (36.0-66.0); PLATELET COUNT, AUTOMATED 207 10^3/uL (150-450)
[2025-03-07 13:46] VITALS: BP 145/76; O2SAT 98
[2025-03-07] MEDS: LIDOCAINE 1% MDV 20 ML VIAL SC SCH (14:06)
== END ==
LOC: M IRPRO 12:34
PROVIDERS: ATTEND Internal Medicine Hematology & Oncology
DX: D69.6 Thrombocytopenia, unspecified (principal); C61 Malignant neoplasm of prostate

== ENCOUNTER 2025-03-21 11:00 | Outpatient (RCR) | payer OTHER, MEDICARE ==
[~2025-03-21 11:00] MED LIST changes: +FERR325T3 PO
== END 2025-03-26 ==
LOC: M ONCR 11:00
PROVIDERS: ATTEND General Practice
DX: Z51.0 Encounter for antineoplastic radiation therapy (principal); C61 Malignant neoplasm of prostate

== ENCOUNTER → 2025-04-12 | Outpatient (REF) | payer OTHER, MEDICARE ==
[~2025-04-12] MED LIST changes: +ONDA-282 PO
== END ==
LOC: M LAB REF 15:13
PROVIDERS: ATTEND Urology
DX: C61 Malignant neoplasm of prostate (principal)

== ENCOUNTER → 2025-04-26 | Outpatient (RCR) | payer OTHER, MEDICARE | LOC: M ONCR 03-27 09:57 | PROVIDERS: ATTEND General Practice | DX: Z51.0 Encounter for antineoplastic radiation therapy (principal); C61 Malignant neoplasm of prostate ==